=== PATIENT | female | born 1955 | race Caucasian/White ===

== ENCOUNTER 2023-11-10 12:47 | Day surgery (SDC) | payer MEDICARE ==
[2023-11-10] MEDS ORDERED: Depo-Medrol 40 MG/ML IM ONE (12:48)
[2023-11-10] MEDS ORDERED: Sodium Chloride 0.9(Preservative Free) 10 ML IJ ONE (12:48)
[2023-11-10] MEDS ORDERED: XYLOCAINE-MPF 1% 5ML SDV IJ ONE (12:48)
[2023-11-10] MEDS ORDERED: DIPRIVAN 200 MG/20 ML IV ONE (14:41)
[2023-11-10] MEDS ORDERED: Lactated Ringers 1,000 ML IV ONE (14:57)
--- NOTE | 2023-11-10 15:25 | XRAY ---
Indication: Lumbar EILEEN. Intraoperative fluoroscopy provided for 16 seconds. 3 digital spot image submitted for interpretation demonstrates posterior needle tip projecting posterior to last lumbar segment. Small amount of contrast injected for needle tip placement. Correlate with intraoperative findings/report.
--- NOTE | 2023-11-10 15:25 | XRAY ---
16 seconds of fluoroscopy was used in surgery for a lumbar EILEEN.
== END 2023-11-10 15:10 | disposition home or self-care (01) ==
LOC: SDC-PAIN 12:47
PROVIDERS: ATTEND Psychiatry & Neurology Pain Medicine
DX: M54.16 Radiculopathy, lumbar region (principal)
CPT/HCPCS: 62323; 72100; 77003; J1010; J2704; Q9966

== ENCOUNTER 2024-01-26 10:21 | Day surgery (SDC) | payer MEDICARE, SELFPAY ==
[2024-01-26] MEDS ORDERED: Sodium Chloride 0.9(Preservative Free) 10 ML IJ ONE (10:22)
[2024-01-26] MEDS ORDERED: Depo-Medrol 40 MG/ML IM ONE (10:22)
[2024-01-26] MEDS ORDERED: Lactated Ringers 1,000 ML IV ONE (12:12)
[2024-01-26] MEDS ORDERED: DIPRIVAN 200 MG/20 ML IV ONE (12:37)
--- NOTE | 2024-01-26 14:13 | XRAY ---
Indication: Caudal EILEEN. Intraoperative fluoroscopy provided for 33 seconds. 5 digital spot image submitted for interpretation demonstrates caudal needle tip projecting mid sacrum. Small amount of contrast injected for needle tip placement. Correlate with intraoperative findings/report.
--- NOTE | 2024-01-26 15:00 | XRAY ---
33 seconds of fluoroscopy was used in surgery for a caudal EILEEN.
== END 2024-01-26 13:10 | disposition home or self-care (01) ==
LOC: SDC-PAIN 10:21
PROVIDERS: ATTEND Psychiatry & Neurology Pain Medicine
DX: M54.16 Radiculopathy, lumbar region (principal)
CPT/HCPCS: 62323; 72220; 77003; J2704; Q9966

== ENCOUNTER 2024-04-05 09:50 | Day surgery (SDC) | payer MEDICARE ==
[2024-04-05] MEDS ORDERED: Xylocaine-Mpf 2% 5 Ml Vial IJ ONE (09:51)
[2024-04-05] MEDS ORDERED: DIPRIVAN 200 MG/20 ML IV ONE (11:52)
--- NOTE | 2024-04-05 14:18 | XRAY ---
Indication: Bilateral L4-S1 MBB. Intraoperative fluoroscopy provided for 22 seconds. Single digital spot image submitted for interpretation demonstrates posterior needle tips projecting over the expected left and right L4-S1 nerve roots. Correlate with intraoperative findings/report.
--- NOTE | 2024-04-05 14:22 | XRAY ---
22 seconds of fluoroscopy was used in surgery for a bilateral L4-S1 MBB.
== END 2024-04-05 12:26 | disposition home or self-care (01) ==
LOC: SDC-PAIN 09:50
PROVIDERS: ATTEND Psychiatry & Neurology Pain Medicine
DX: M47.816 Spondylosis without myelopathy or radiculopathy, lumbar region (principal)
CPT/HCPCS: 64493; 64494; 72020; 77002; J2704

== ENCOUNTER 2024-08-16 16:46 | Day surgery (SDC) | payer MEDICARE, SELFPAY ==
[2024-08-16] MEDS ORDERED: BUPIVACAINE 0.5% VIAL IJ ONE (16:47)
[2024-08-16] MEDS ORDERED: LIDOCAINE HCL 1% AMPUL 5 ML IJ ONE (16:47)
[2024-08-16] MEDS ORDERED: Depo-Medrol 40 MG/ML IM ONE (16:47)
[2024-08-16] MEDS ORDERED: Lactated Ringers 500 ML IV ONE (16:51)
--- NOTE | 2024-08-16 20:34 | XRAY ---
Indication: Right L4-S1 RFA. Intraoperative fluoroscopy provided for 45 seconds. 6 digital spot images submitted for interpretation demonstrates posterior needle tips projecting over expected right L4-S1 nerve roots. Correlate with intraoperative findings/report.
--- NOTE | 2024-08-16 20:49 | XRAY ---
45 seconds of fluoroscopy were used in surgery for a right L4-S1 RFA.
== END 2024-08-16 18:35 | disposition home or self-care (01) ==
LOC: SDC-PAIN 16:46
PROVIDERS: ATTEND Psychiatry & Neurology Pain Medicine
DX: M47.816 Spondylosis without myelopathy or radiculopathy, lumbar region (principal)
CPT/HCPCS: 64635; 64636; 72100

== ENCOUNTER 2024-08-23 15:02 | Day surgery (SDC) | payer MEDICARE, SELFPAY ==
[2024-08-23] MEDS ORDERED: LIDOCAINE HCL 1% AMPUL 5 ML IJ ONE (15:03)
[2024-08-23] MEDS ORDERED: BUPIVACAINE 0.5% VIAL IJ ONE (15:03)
[2024-08-23] MEDS ORDERED: Depo-Medrol 40 MG/ML IM ONE (15:03)
[2024-08-23] MEDS ORDERED: Lactated Ringers 500 ML IV ONE (15:05)
--- NOTE | 2024-08-23 18:26 | XRAY ---
Indication: Left L4-S1 RFA. Intraoperative fluoroscopy provided for 33 seconds. 4 digital spot image submitted for interpretation demonstrates posterior needle tips projecting over expected left L4-S1 nerve roots. Correlate with intraoperative findings/report.
--- NOTE | 2024-08-24 08:53 | XRAY ---
33 seconds of fluoroscopy used in surgery for a left L4-S1 RFA.
== END 2024-08-23 17:11 | disposition home or self-care (01) ==
LOC: SDC-PAIN 15:02
PROVIDERS: ATTEND Psychiatry & Neurology Pain Medicine
DX: M47.816 Spondylosis without myelopathy or radiculopathy, lumbar region (principal)
CPT/HCPCS: 64635; 64636; 72100